=== PATIENT | female | born 2000 | race Caucasian/White ===

== ENCOUNTER 2018-05-21 23:24 | Inpatient (IN) ==
[2018-05-21] MEDS ORDERED: LACTATED RINGERS 1,000 ML IV SCH (23:45)
[2018-05-21] MEDS ORDERED: BUTORPHANOL 2 MG/ML VIAL IV PRN (23:46)
[2018-05-21] MEDS ORDERED: MEPERIDINE 50 MG/1 ML VIAL IM PRN (23:46)
[2018-05-21] MEDS ORDERED: ONDANSETRON 4 MG/2 ML VIAL IV PRN (23:46)
[2018-05-21] MEDS ORDERED: LACTATED RINGERS 500 ML IV PRN (23:46)
[2018-05-21] MEDS ORDERED: CITRIC ACID/SODIUM CITRATE 30 ML UDCUP PO ONE (23:49)
[2018-05-21] MEDS ORDERED: ePHEDrine 50 MG/ML AMP IV PRN (23:50)
[2018-05-21] MEDS ORDERED: FAMOTIDINE 20 MG/2 ML VIAL IV ONE (23:50)
[2018-05-22 00:31] LABS: Alanine Aminotransferase 10 U/L (13-56); Albumin 2.6 G/DL (3.4-5.0); Alkaline Phosphatase 188 U/L (45-117); Aspartate Amino Transferase 13 U/L (0-37); Bilirubin,Total < 0.39 MG/DL (0.2-1.0); Blood Urea Nitrogen 12 MG/DL (7-18); Calcium 8.6 MG/DL (8.5-10.1); Glucose 84 MG/DL (74-106); Osmolality,Calculated 275.5 MOS/KG (273-304); Potassium 3.7 MMOL/L (3.5-5.1); Sodium 139 MMOL/L (136-145); Total Protein 6.6 G/DL (6.4-8.3)
[2018-05-22 00:38] LABS: Basophils % 0.3 % (0.0-0.8); Eosinophils # 0.3 10*3/uL (0.0-0.87); Eosinophils % 2.5 % (0.00-10.9); Hematocrit 31.4 VOL% (35.7-47.0); Hemoglobin 10.2 GM/DL (12.0-16.0); Immature Granulocytes % 0.8 %; Lymphocytes # 2.4 10*3/uL (1.4-4.0); Lymphocytes % 18.5 % (21.3-54.2); Mean Corpuscular HGB Conc 32.5 GM/DL (32-36); Mean Corpuscular Hemoglobin 28 PG (27-34); Mean Corpuscular Volume 85.8 FL (87-102); Mean Platelet Volume 10.5 FL (9.6-12.0); Monocytes # 0.7 10*3/uL (0.11-0.8); Monocytes % 5.2 % (1.7-12.7); Neutrophils # 9.2 10*3/uL (1.4-7.4); Neutrophils % 72.7 % (38.7-73.9); Platelet Count 258 T/CUMM (130-400); Red Blood Count 3.66 MC/CUMM (3.8-5.5); Red Cell Distribution Width 13.7 % (9.3-17.3); White Blood Count 12.7 T/CUMM (4-12)
[2018-05-22] MEDS: fentaNYL 2 MCG/ROPIV 0.2% EPID 100 ML EPIDURAL SCH ×2 (01:14→09:05)
[2018-05-22 02:54] LABS: Apearance,Urine Slightly Hazy (Clear); Bilirubin,Urine Negative (Negative); Blood, Urine Negative (Negative); Glucose,Urine (UA) Negative (Negative); Ketones,Urine Negative (Negative); Mucus,Urine Occasional /LPF (Occasional); Nitrite,Urine Negative (Negative); Protein,Urine Negative; RBC,Urine 5 /HPF (0-4); Squamous Epithelial Cell,Urine Occasional /HPF (0-10); Urine Color Yellow (Yellow); Urine Specific Gravity 1.026 (1.001-1.035)
[2018-05-22] MEDS ORDERED: OXYTOCIN/LR 20 UNIT/1,000 ML BAG IV SCH (07:00)
[2018-05-22] MEDS ORDERED: METHYLERGONOVINE 0.2 MG/1 ML AMP ONE (09:05)
[2018-05-22] MEDS ORDERED: CARBOPROST TROMETHAMINE 250 MCG/ML AMP IM ONE (09:05)
[2018-05-22] MEDS ORDERED: miSOPROStol 200 MCG TABLET ONE (09:05)
[2018-05-22] MEDS ORDERED: LIDOCAINE MPF 2% /EPI 20 ML VIAL ONE (09:11)
[2018-05-22 09:57] LABS: Cord Arterial Blood HCO3 20.2 MMOL/L
[2018-05-22] MEDS ORDERED: LANOLIN 50% CREAM 0.3 OZ TUBE TOP PRN (12:41)
[2018-05-22] MEDS ORDERED: WITCH HAZEL PADS 100/JAR TOP PRN (12:41)
[2018-05-22] MEDS ORDERED: RHO(D) IMMUNE GLOBULIN 300 MCG SYRINGE IM ONE (12:41)
[2018-05-22] MEDS ORDERED: HYDROCORTISONE 2.5% RECTAL CREAM 30 GM TUBE TOP PRN (12:41)
[2018-05-22] MEDS ORDERED: ACETAMINOPHEN/CODEINE 300-30 MG TABLET PO PRN (12:41)
[2018-05-22] MEDS ORDERED: ACETAMINOPHEN 325 MG TABLET PO PRN (12:41)
[2018-05-22] MEDS ORDERED: DIPH/TET/ACEL PERT BOOSTER VACCINE 0.5 ML VIAL IM ONE (12:41)
[2018-05-22] MEDS ORDERED: BISACODYL 10 MG SUPP RECTAL PRN (12:41)
[2018-05-22] MEDS ORDERED: BENZOCAINE 20%/MENTHOL 0.5% SPRAY 56 GM CAN TOP PRN (12:41)
[2018-05-22] MEDS ORDERED: MEASLES/MUMPS/RUBELLA VACCINE 0.5 ML VIAL SUBCUT ONE (12:41)
[2018-05-22] MEDS: IBUPROFEN 800 MG TABLET PO PRN (13:30)
[2018-05-22] MEDS ORDERED: ALBUTEROL 2.5 MG/3 ML NEB RESP TX ONE (14:10)
[2018-05-22] MEDS: oxyCODONE/ACETAMINOPHEN 5-325 MG TABLET PO PRN ×2 (16:07→22:45)
[2018-05-22] MEDS: DOCUSATE SODIUM 100 MG CAPSULE PO SCH (20:31)
[2018-05-23 05:12] LABS: Basophils % 0.4 % (0.0-0.8); Eosinophils # 0.5 10*3/uL (0.0-0.87); Eosinophils % 4.7 % (0.00-10.9); Hematocrit 28.5 VOL% (35.7-47.0); Hemoglobin 9.1 GM/DL (12.0-16.0); Immature Granulocytes % 0.3 %; Immature Granulocytes Absolute 0.03 #; Lymphocytes % 39.3 % (21.3-54.2); Mean Corpuscular HGB Conc 31.9 GM/DL (32-36); Mean Corpuscular Hemoglobin 28 PG (27-34); Mean Corpuscular Volume 86.9 FL (87-102); Mean Platelet Volume 10.3 FL (9.6-12.0); Monocytes # 0.6 10*3/uL (0.11-0.8); Neutrophils % 49.3 % (38.7-73.9); Platelet Count 221 T/CUMM (130-400); Red Blood Count 3.28 MC/CUMM (3.8-5.5); Red Cell Distribution Width 13.7 % (9.3-17.3); White Blood Count 10.1 T/CUMM (4-12)
[2018-05-23] MEDS: IBUPROFEN 800 MG TABLET PO PRN ×3 (05:27→22:37)
[2018-05-23] MEDS: FERROUS SULFATE 325 MG TABLET PO SCH ×2 (09:26→21:02)
[2018-05-23] MEDS: DOCUSATE SODIUM 100 MG CAPSULE PO SCH ×2 (09:27→21:02)
[2018-05-23] MEDS: oxyCODONE/ACETAMINOPHEN 5-325 MG TABLET PO PRN ×2 (14:36→21:03)
[2018-05-24 07:58] VITALS: BP 124/89
[2018-05-24] MEDS: DOCUSATE SODIUM 100 MG CAPSULE PO SCH (08:42)
[2018-05-24] MEDS: FERROUS SULFATE 325 MG TABLET PO SCH (08:42)
== END 2018-05-24 12:40 | disposition home or self-care (01) | DRG 560 ==
LOC: N.LDOUT 23:24 → N.LD 23:27 → N.OB 05-22 12:40
PROVIDERS: ADMIT Obstetrics & Gynecology; ATTEND Obstetrics & Gynecology